=== PATIENT | female | born 1985 | race Two or more races ===

== ENCOUNTER 2024-07-24 21:49 | Emergency (ER) | payer MEDICAID, OTHER ==
[~2024-07-24] VITALS: Ht 157.5 cm; Wt 81.3 kg
--- NOTE | 2024-07-24 22:34 | ED.PDOC ---
History of Present Illness HPI Comments 39 y/o F presents for abnormal vaginal bleeding and cramping lower abdominal pain. Patient endorses on onset of symptoms, today, following a recent transvaginal biopsy two days ago. Already gone through 6x pads, today. She denies any lightheadedness, weakness, dizziness, or further associated symptoms. Vital signs were stable at arrival. Time Seen by MD: 23:20 Primary Care Provider: AARON Reviewed Notes: Nurses Notes, Medications, Allergies Allergies: Coded Allergies: NO KNOWN ALLERGIES (Unverified , 07/24/24) Information Source: Patient Mode of Arrival: Ambulatory Severity: Moderate Timing: Hours Duration: Since onset Prehospital treatment: None Past Medical History PAST MEDICAL HISTORY: Anemia Surgical History: Denies all surgeries Surgical History (Other): Recent transvaginal biopsy procedure RECREATION SPECIALIST History: No Pertinent RECREATION SPECIALIST History Family History Family History: Unobtainable Social History Smoker: Cigarettes Alcohol: Occasionally Drugs: Denies Drug Use Lives In: Home Constitutional: denies: chills, diaphoresis, fatigue, fever, malaise, sweats, weakness, others EENTM: denies: blurred vision, double vision, ear bleeding, ear discharge, ear drainage, ear pain, ear ringing, eye pain, eye redness, hearing loss, mouth pain, mouth swelling, nasal discharge, nose bleeding, nose congestion, nose pain, photophobia, tearing, throat pain, throat swelling, voice changes, others Respiratory: denies: cough, hemoptysis, orthopnea, SOB at rest, shortness of breath, SOB with excertion, stridor, wheezing, others Cardiovascular: denies: chest pain, dizzy spells, diaphoresis, Dyspnea on exertion, edema, irregular heart beat, left arm pain, lightheadedness, palpitations, PND, syncope, others Gastrointestinal: denies: abdomen distended, abdominal pain, blood streaked bowels, constipated, diarrhea, dysphagia, difficulty swallowing, hematemesis, melena, nausea, poor appetite, poor fluid intake, rectal bleeding, rectal pain, vomiting, others Genitourinary: reports: abnormal vagina bleeding; denies: burning, dyspareunia, dysuria, flank pain, frequency, hematuria, incontinence, pain, , vagina discharge, urgency, others Neurological: denies: dizziness, fainting, headache, left sided numbness, left sided weakness, numbness, paresthesia, pre-existing deficit, right sided numbness, right sided weakness, seizure, speech problems, tingling, tremors, weakness, others Musculoskeletal: denies: back pain, gout, joint pain, joint swelling, muscle pa in, muscle stiffness, neck pain, others Integumetry: denies: bruises, change in color, change in hair/nails, dryness, laceration, lesions, lumps, rash, wounds, others Allergic/Immunocompromised: denies: Difficulty Healing, Frequent Infections, Hives, Itching, others Hematologic/Lymphatic: denies: anemia, blood clots, easy bleeding, easy bruising, swollen glands, others Endocrine: denies: excessive hunger, excessive sweating, excessive thirst, excessive urination, flushing, intolerance to cold, intolerance to heat, unexplained weight gain, unexplained weight loss, others Psychiatric: denies: anxiety, bipolar disorder, depression, hopeless, panic disorder, schizophrenia, sleepless, suicidal, others All Other Systems: Reviewed and Negative (see HPI) Physical Exam General Appearance: Moderate Distress ([id number] distress due to intravaginal pain concerns and anxiety related to her vaginal bleeding), Obese HEENT: Normal ENT Inspection, Pharynx Normal, TMs Normal Neck: Full Range of Motion, Non-Tender, Normal, Normal Inspection Respiratory: Chest Non-Tender, Lungs Clear, No Accessory Muscle Use, No Respiratory Distress, Normal Breath Sounds Cardiovascular: No Edema, No JVD, No Murmur, No Gallop, Normal Peripheral Pulses, Regular Rate/Rhythm Breast Exam: Deferred Gastrointestinal: Other (Lateral abdominal/pelvic tenderness to palpation throughout. No pulsatile masses. Difficult to assess due to body habitus.) Genitalia: Deferred Pelvic: Deferred Rectal: Deferred Extremities: No calf tenderness, Normal capillary refill, Normal inspection, Normal range of motion, Non-tender, No pedal edema Neurologic: Alert, No Motor Deficits, Normal Affect, Normal Mood, No Sensory Deficits Cerebellar Function: Normal Reflexes: Normal Skin: Dry, Normal Color, Warm Lymphatic: No Adenopathy Was a procedure done? Was a procedure done?: No Differential Dx Considerations may include: menorrhea, dysmenorrhea, anemia, postprocedural bleeding, among others X-Ray, Labs, Meds, VS Vital Signs Date Time Temp Pulse Resp B/P (MAP) Pulse Ox O2 Delivery O2 Flow Rate FiO2 07/24/24 22:45 74 14 96 Room Air* 0 21 07/24/24 22:36 99.3 85 18 131/71 (91) 98 99.3 Lab Test 07/24/24 22:33 Range/Units White Blood Count 8.4 4.4-10.8 10^3/uL Red Blood Count 4.83 4.0-5.20 10^6/uL Hemoglobin 12.2 12.2-16.2 g/dL Hematocrit 37.4 36.0-46.0 % Mean Corpuscular Volume 77.4 L 80.0-100.0 fL Mean Corpuscular Hemoglobin 25.3 L 28.0-32.0 pg Mean Corpuscular Hemoglobin Concent 32.7 32.0-36.0 g/dL Red Cell Distribution Width 15.5 H 11.8-14.3 % Platelet Count 316 140-450 10^3/uL Mean Platelet Volume 8.2 6.9-10.8 fL Neutrophils (%) (Auto) 64.7 37.0-80.0 % Lymphocytes (%) (Auto) 23.0 10.0-50.0 % Monocytes (%) (Auto) 7.9 0.0-12.0 % Eosinophils (%) (Auto) 3.2 0.0-7.0 % Basophils (%) (Auto) 1.2 0.0-2.0 % Neutrophils # (Auto) 5.5 1.6-8.6 10 ^3/uL Lymphocytes # (Auto) 1.9 0.4-5.4 10 ^3/uL Monocytes # (Auto) 0.7 0-1.3 10 ^3/uL Eosinophils # (Auto) 0.3 0-0.8 10 ^3/uL Basophils # (Auto) 0.1 0-0.2 10 ^3/uL Nucleated Red Blood Cells 0.1 % Sodium Level 142 136-145 mmol/L Potassium Level 4.0 3.5-5.1 mmol/L Chloride Level 108 H 98-107 mmol/L Carbon Dioxide Level 23 20-31 mmol/L Anion Gap 11 5-15 Blood Urea Nitrogen 12 9-23 mg/dL Creatinine 0.83 0.550-1.02 mg/dL Glomerular Filtration Rate Calc 93 >90 mL/min BUN/Creatinine Ratio 14.5 10.0-20.0 Serum Glucose 140 H 74-106 mg/dL Calcium Level 10.2 8.7-10.4 mg/dL Current Medications Medications (Trade) Dose Ordered Sig/Tod Route Start Time Stop Time Status Last Admin Acetaminophen/ Hydrocodone Bitart (Sherman 5/325MG Tab) 1 tab ONCE ONCE PO 07/24/24 22:30 07/24/24 22:31 DC 07/24/24 22:43 Ondansetron HCl (Zofran Po) 4 mg ONCE ONCE PO 07/24/24 22:30 07/24/24 22:31 DC 07/24/24 22:43 X-Ray, Labs, Meds, VS Comment All studies performed the ED were evaluated by me personally. Laboratories studies were unremarkable for any critical anemia concerns. Patient has been advised to utilize pain medication as needed and follow up with her procedural doctor on Friday for re-evaluation and discussions related to vaginal bleeding concerns. Time of 1ST Reevaluation: 23:11 Reevaluation 1ST: Improved Consultation: PCP, surgical instruments inspector Patient Education/Counseling: Diagnosis, Treatment, Need For Follow Up Family Education/Counseling: Diagnosis, Treatment, No Family Present Departure 1 Departure Time of Disposition: 23:11 Impression: Primary Impression: Postoperative vaginal bleeding following genitourinary procedure Disposition: HOME / SELF CARE / HOMELESS Condition: Stable Additional Instructions: Advised patient utilize pain medication as needed and follow up with her procedural doctor for evaluation of post procedural vaginal bleeding concerns. e-Prescriptions Hydrocodone-Acetaminophen (Hydrocodone Bitartrate/AC 5-325 mg) 1 Tab Tab 1 TAB PO Q6HP PRN, #12 TAB Prov: HERNAN BLAND PAC 07/24/24 Discharged With: Self, Friend Critical Care Note Critical Care Time?: No Stability Stability form required: No Heart Score Heart Score: Heart Score Response (Comments) Value History N/A 0 EKG N/A 0 Age N/A 0 Risk Factors N/A 0 Troponin N/A 0 Total 0 I personally scribed for ISABELLE DOWNS MD ([email or web address]) on 07/24/24 at 22:34. Electronically submitted by Abram Viveros [email or web address]). ISABELLE DOWNS MD Jul 24, 2024 22:34 HERNAN BLAND PAC Jul 24, 2024 23:13
[2024-07-24] MEDS: HYDROcodone-ACET 5/325MG TAB PO ONE (22:43)
[2024-07-24] MEDS: ONDANSETRON ODT 4 MG TAB PO ONE (22:43)
[2024-07-24 22:45] VITALS: PULSE 74; RESP 14; O2SAT 96
[2024-07-24 22:45] LABS: Basophils # (auto) 0.1 10 ^3/uL (0-0.2); Basophils % (auto) 1.2 % (0.0-2.0); Eosinophils # (auto) 0.3 10 ^3/uL (0-0.8); Eosinophils % (auto) 3.2 % (0.0-7.0); Hematocrit 37.4 % (36.0-46.0); Hemoglobin 12.2 g/dL (12.2-16.2); Lymphocytes # (auto) 1.9 10 ^3/uL (0.4-5.4); Mean Corpuscular Hemoglobin 25.3 pg (28.0-32.0); Mean Corpuscular Hgb Conc. 32.7 g/dL (32.0-36.0); Mean Corpuscular Volume 77.4 fL (80.0-100.0); Monocytes # (auto) 0.7 10 ^3/uL (0-1.3); Monocytes % (auto) 7.9 % (0.0-12.0); Neutrophils # (auto) 5.5 10 ^3/uL (1.6-8.6); Neutrophils % (auto) 64.7 % (37.0-80.0); Nucleated Red Blood Cells % 0.1 %; Platelet Count (auto) 316 10^3/uL (140-450); Red Blood Cells 4.83 10^6/uL (4.0-5.20); Red Cell Distribution Width 15.5 % (11.8-14.3); White Blood Cell 8.4 10^3/uL (4.4-10.8)
[2024-07-24 22:53] LABS: Sodium 142 mmol/L (136-145)
[2024-07-24 22:54] LABS: Anion Gap 11 (5-15); Calcium 10.2 mg/dL (8.7-10.4); Carbon Dioxide 23 mmol/L (20-31)
[2024-07-24 22:55] LABS: Chloride 108 mmol/L (98-107)
[2024-07-24 23:00] LABS: BUN/Creatinine Ratio 14.5 (10.0-20.0); Blood Urea Nitrogen 12 mg/dL (9-23); Glucose 140 mg/dL (74-106)
[2024-07-24] MEDS ORDERED: HYDR-4902 PO (23:12)
[2024-07-24 23:30] VITALS: BP 129/79; PULSE 72; RESP 12; TEMP 98.4; O2SAT 98
[2024-07-24] MEDS ORDERED: ZOFR4T PO (23:37)
== END 2024-07-24 23:42 | disposition home or self-care (01) ==
LOC: ER 21:49
DX: N99.820 Postprocedural hemorrhage of a genitourinary system organ or structure following a genitourinary system procedure (principal); F17.210 Nicotine dependence, cigarettes, uncomplicated
CPT/HCPCS: 36415; 80048; 85025; 99283; Q0162